=== PATIENT | female | born 1945 | race Caucasian/White ===

== ENCOUNTER → 2018-05-12 | Outpatient (CLI) | payer MEDICARE, OTHER ==
[~2018-05-12] MED LIST: ASPI81CH PO; ATOR40TA PO; CLOP75 PO; LISI5 PO; Nitrostat0.4 MG SL
[2018-05-13 15:14] LABS: Stool Occult Bld Immuno 1 Negative (NEGATIVE); Stool Occult Bld Immuno 2 Negative (NEGATIVE); Stool Occult Bld Immuno 3 Negative (NEGATIVE)
== END | disposition home or self-care (01) ==
LOC: LAB EV 12:10
PROVIDERS: Physician Assistant
DX: Z12.11 Encounter for screening for malignant neoplasm of colon (principal)
CPT/HCPCS: G0328

== ENCOUNTER → 2020-03-04 | Outpatient (CLI) | payer MEDICARE, OTHER ==
[~2020-03-04] MED LIST changes: +Acetaminophen325 M1 PO; +ESCI10 PO; +IBUP600 PO; +ROXICODONE5 MG PO
== END | disposition home or self-care (01) ==
LOC: LAB SHORT 08:10 → PLD 08:10
DX: B35.1 Tinea unguium (principal)
CPT/HCPCS: 88305; 88312

== ENCOUNTER 2020-05-20 06:06 | Day surgery (SDC) | payer MEDICARE ==
[~2020-05-20] VITALS: Ht 167.6 cm; Wt 82.4 kg
[~2020-05-20 06:06] MED LIST changes: -Acetaminophen325 M1 PO; -IBUP600 PO; -ROXICODONE5 MG PO
--- NOTE | 2020-05-20 16:39 | NUR ---
SHIFT SUMMARY PT EATING AND DRINKING. PT HAS SOW IN PLACE. PT BEEN ASSISTED WITH ADL'S PRN. PT BEEN UP AND AMBULATED IN HALLWAY. PT FAMILY HERE, SCRIPTS SENT WITH FAMILY PER PT REQ. PT CALL LIGHT IN REACH.
--- NOTE | 2020-05-20 18:29 | NUR ---
DR COLES CALLED EARLIER THIS EVENING, GIVEN UPDATE. REPORTS TO Andreas/Alan SOW IF PT IS AMBULATING. PT AMBULATED EARLIER TODAY. FEMALE ARTISAN PLASTERER REPORTS WILL Andreas/Alan SOW.
--- NOTE | 2020-05-20 19:12 | NUR ---
PT RESTING QUIETLY. MAGI MCKINNON'Andreas BY FEMALE ELIGIBILITY EXAMINER. WILL GIVE REPORT TO SABRA MELENDEZ.
[2020-05-21 04:57] LABS: BASOPHILS ABSOLUTE AUTO 0.01 K/mm3 (0.00-0.23); BASOPHILS PERCENT AUTO 0 % (0-2); EOSINOPHILS PERCENT AUTO 0 % (0-6); Hematocrit 43.2 % (33.0-51.0); Hemoglobin 14.2 g/dL (11.5-16.0); IMMATURE GRAN ABSOLUTE AUTO 0.05 K/mm3 (0.00-0.10); IMMATURE GRAN PERCENT AUTO 1 % (0-1); LYMPHOCYTES ABSOLUTE AUTO 1.17 K/mm3 (0.84-5.20); LYMPHOCYTES PERCENT AUTO 11 % (21-46); MONOCYTES ABSOLUTE AUTO 0.66 K/mm3 (0.16-1.47); MONOCYTES PERCENT AUTO 6 % (4-13); Mean Corpuscular HGB 30.1 pg (26.0-34.0); Mean Corpuscular HGB Conc 32.9 g/dL (31.5-36.5); Mean Corpuscular Volume 92 fL (80-100); Mean Platelet Volume 11.2 fL (9.1-12.4); NEUTROPHILS ABSOLUTE AUTO 8.62 K/mm3 (1.96-9.15); NEUTROPHILS PERCENT AUTO 82 % (41-73); Platelet Count 232 K/mm3 (150-400); RDW Coefficient Variation 14.1 % (11.7-14.2); RDW Standard Deviation 47.7 fL (35.1-46.3); Red Blood Cell Count 4.72 M/mm3 (3.80-5.20); White Blood Cell Count 10.51 K/mm3 (4.00-11.30)
--- NOTE | 2020-05-21 06:46 | NUR ---
SHIFT SUMMARY: MAYKEL IS A&O X4. VSS, NO ACUTE EVENTS OVERNIGHT. SHE IS TOLERATING PO INTAKE WELL, REPORTS ADEQUATE PAIN CONTROL WITH APAP AND TORADOL, AND IS VOIDING WITHOUT DIFFICULTY. SHE USES HER CALL LIGHT APPROPRIATELY. SMALL AMT DRAINAGE ON THE [place] PAD. SHE IS AMBULATING INDEPENDENTLY IN THE ROOM. SHE IS LYING IN BED WITH HER CALL LIGHT IN REACH. WILL REPORT TO DAY SHIFT RN.
[2020-05-21] MEDS ORDERED: Acetaminophen325 M1 PO (08:48)
[2020-05-21] MEDS ORDERED: ROXICODONE5 MG PO (08:49)
[2020-05-21] MEDS ORDERED: IBUP600 PO (08:49)
--- NOTE | 2020-05-21 12:26 | NUR ---
DISCHARGE: PT EATING AND DRINKING, VOIDING. PT REPORTS PAIN MINIMAL AND TOLERABLE ON PO PAIN MEDICATION. PT UP AND AMBULATING WITH STEADY GAIT. PT REPORTS NO BLEEDING NOTED ON PAD. PT FAMILY HERE TO GET PT WHO WAS GIVEN PRESCRIPTIONS YESTERDAY TO TOOL CRIB MANAGER. PT/FAMILY REPORTS UNDERSTANDING OF DISCHARGE INSTRUCTIONS. IV OUT EARLIER, NO OTHER IV'S IN PLACE. PT SENT WITH BELONGINGS. FAMILY GIVING PT RIDE HOME.
== END 2020-05-21 12:48 | disposition home or self-care (01) ==
LOC: ORSCMMR 06:06 → ORD 07:30 → SURS 10:21 → ORSCMMR 05-21 12:48 → SURS 05-21 12:48
PROVIDERS: Obstetrics & Gynecology
PROC: 0UT97ZZ Resection of Uterus, Via Natural or Artificial Opening (ICD-10-PCS; principal; 2020-05-20 07:30)
PROC: 0UQF0ZZ Repair Cul-de-sac, Open Approach (ICD-10-PCS; principal; 2020-05-20 07:30)
PROC: 0DBQXZZ Excision of Anus, External Approach (ICD-10-PCS; principal; 2020-05-20 07:30)
PROC: 0JQC0ZZ Repair Pelvic Region Subcutaneous Tissue and Fascia, Open Approach (ICD-10-PCS; principal; 2020-05-20 07:30)
DX: N81.4 Uterovaginal prolapse, unspecified (principal); N81.6 Rectocele; K64.4 Residual hemorrhoidal skin tags; N72 Inflammatory disease of cervix uteri; N73.6 Female pelvic peritoneal adhesions (postinfective); I10 Essential (primary) hypertension; I25.10 Atherosclerotic heart disease of native coronary artery without angina pectoris; E78.5 Hyperlipidemia, unspecified; G47.33 Obstructive sleep apnea (adult) (pediatric); K21.9 Gastro-esophageal reflux disease without esophagitis; Z79.899 Other long term (current) drug therapy; Z79.82 Long term (current) use of aspirin; Z85.3 Personal history of malignant neoplasm of breast
CPT/HCPCS: 36415; 85025; 88305; 88307; A9270; J0171; J0690; J1100; J1885; J2250; J2370; J2405; J2704; J3010; J7120

== ENCOUNTER 2021-04-09 23:07 | Emergency (ER) | payer OTHER ==
[~2021-04-09] VITALS: Ht 170.2 cm; Wt 77.1 kg
[~2021-04-09 23:07] MED LIST changes: +Acetaminophen325 M1 PO; +IBUP600 PO; +ROXICODONE5 MG PO
[2021-04-09] MEDS ORDERED: Oxybutynin Chlor5 M1 PO (23:30)
[2021-04-09] MEDS ORDERED: ESTRADIOL42.5 GM (23:30)
== END 2021-04-10 01:55 | disposition home or self-care (01) ==
LOC: ER 23:07
DX: K62.3 Rectal prolapse (principal)
CPT/HCPCS: 96374; 96375; 99283; J2250; J2270

== ENCOUNTER → 2024-05-17 | Outpatient (CLI) | payer OTHER ==
[~2024-05-17] MED LIST changes: +ESTRADIOL42.5 GM; +Oxybutynin Chlor5 M1 PO
== END ==
LOC: LAB 08:14 → LAB SHORT 08:14 → PLD 08:14
DX: B35.1 Tinea unguium (principal); L60.2 Onychogryphosis
CPT/HCPCS: 88305; 88312

== ENCOUNTER 2024-10-10 18:24 | Emergency (ER) | payer OTHER ==
[~2024-10-10] VITALS: Ht 167.6 cm; Wt 69.0 kg
[2024-10-10] MEDS ORDERED: FentaNYL Citrate 50 MCG/ML 2 ML Injection IV PRN ×2 (18:40→20:00)
[2024-10-10] MEDS ORDERED: Midazolam HCl 1MG / ML 2ML Vial IV PRN (18:40)
[2024-10-10 21:30] VITALS: BP 157/72
== END 2024-10-10 21:38 | disposition home or self-care (01) ==
LOC: ER 18:24
DX: K62.3 Rectal prolapse (principal); Z79.82 Long term (current) use of aspirin; Z79.899 Other long term (current) drug therapy
CPT/HCPCS: 96374; 96375; 99283-25; J2250; J3010